=== PATIENT | male | born 1980 | race Caucasian/White ===

== ENCOUNTER 2016-12-02 16:23 | Emergency (ER) | payer OTHER ==
--- NOTE | ~2016-12-02 | CR72 ---
[facility] A Service of [facility] & [facility] RADIOLOGY TEXT RESULTS PATIENT: SHARLENE BETTENCOURT LOCATION: SED : 82 UNIT #: [id number] AGE: [address]: Chandler Bee MD SEX: M ORDER DR: [id number] [place] [id number] E MR#: [id number] Acc #: [id number] NAME: SHARLENE EBTTENCOURT : 1980 SEX: M STUDY DATE/TIME: 12/02/2016 16:59 UNIT: SED ROOM: STUDY DESCRIPTION: CR Chest Single View Portable Attending Physician: Chandler Bee M.D. Ordering Physician: Chandler Bee M.D. Primary Care Physician: Uche Boston M.D. MEDICAL IMAGING REPORT This report is preliminary unless electronic signature is present. EXAM Portable chest, 12/02/16. HISTORY Shortness of breath and chest pain for 2 days. Smoking history. Abdominal cramping for 2 days. FINDINGS A single AP portable view of the chest shows both lungs to be clear. The heart is normal in size. The mediastinal contour is normal. No significant bone abnormalities are seen. IMPRESSION Normal portable chest. Dictated by... Albert Guadarrama M.D. THIS IS AN ELECTRONICALLY VERIFIED REPORT Albert Guadarrama M.D. at 12/03/2016 2:13 PM AMY/sara TD: 12/02/2016 19:11 JOB #: [id number] MEDICAL IMAGING REPORT Page 1 of 1
--- NOTE | ~2016-12-02 | EKG ---
PATIENT: SHARLENE BETTENCOURT UNIT #: [id number] Ventricular Rate: 84 BPM Atrial Rate: 84 BPM P-R Interval: 200 ms QRS Duration: 70 ms Q-T Interval: 364 ms QTC Calculation(Bezet): 430 ms P [place]: 34 degrees Calculated R [place]: 50 degrees Calculated T [place]: 33 degrees Diagnosis Line: Normal sinus rhythm Diagnosis Line: Normal ECG Diagnosis Line: When compared with ECG of 02-DEC-2016 16:28, Diagnosis Line: (unconfirmed) Diagnosis Line: Vent. rate has decreased BY 60 BPM Diagnosis Line: ST no longer depressed in Anterior leads Diagnosis Line: Confirmed by RAGHU VIGIL MD ([id number]) on Diagnosis Line: 12/05/2016 3:23:19 PM INTERPRETING MD: YARITZA WEINSTEIN
--- NOTE | ~2016-12-02 | EKG ---
PATIENT: SHARLENE BETTENCOURT UNIT #: [id number] Ventricular Rate: 144 BPM Atrial Rate: 141 BPM QRS Duration: 70 ms Q-T Interval: 306 ms QTC Calculation(Bezet): 473 ms Calculated R [place]: 71 degrees Calculated T [place]: 59 degrees Diagnosis Line: Sinus tachycardia Diagnosis Line: Nonspecific ST abnormality Diagnosis Line: Abnormal ECG Diagnosis Line: When compared with ECG of 16-MAR-2016 12:14, Diagnosis Line: T wave inversion no longer evident in Inferior Diagnosis Line: leads Diagnosis Line: Confirmed by RAGHU VIGIL MD ([id number]) on Diagnosis Line: 12/05/2016 3:23:16 PM INTERPRETING MD: YARITZA WEINSTEIN
[~2016-12-02 16:23] MED LIST: ACETAMINOPHEN; ADVIL200 M1 PO; ALBUTEROL MININEB NEB; ALBUTEROL17 GM; ALBUTEROL17 GM INH; ALLERGY SHOTS; ALPRAZOLAM PO; AMOXICILLIN PO; AMOXICILLIN500 M1 PO; BACLOFEN10 MG; BENTYL20 M1 PO; BENZONATATE; BENZONATATE PO; CELEXA PO; CHANTIX PO; CIPRO PO; CLARITIN10 MG PO; CLARITIN5 MG/5 ML; DAYPRO600 M1 PO; DAYQUIL; DICYCLOMINE HCL20 MG PO; EC-NAPROSYN500 MG PO; IBUPROFEN PO; KCL PO; LORATADINE; MOBIC; MOTRIN600 MG PO; MUCINEX; NO MEDICATIONS; PEN-VEE K PO; PERCOCET5/325 PO; PHENERGAN DM1 ML PO; PHENERGAN PO; PREDNISONE; PREDNISONE PO; PRILOSEC; ROBITUSSIN ALL118 ML PO; RONDEC DROPS30 ML PO; SUDAFED PE COLD1 TA1; SUDAFED PLUS PO; SUDAFED PO; SUDAFED30 M1 PO; SUDAFED60 MG PO; TAMIFLU75 MG PO; TRAMADOL HCL50 M1; TRAMADOL HCL50 M1 PO; TYLENOL #3; VIBRAMYCIN100 M1 PO; VOLTAREN50 MG PO; VOLTAREN75 MG PO; ZANAFLEX4 M1 PO; ZITHROMAX PO; ZOFRAN ODT4 MG PO; ZOFRAN ODT4 MG/UDTAB PO; ZYRTEC PO; ZYRTEC-D T1 TAB.SR . PO; ZYRTEC10 M2
[2016-12-02 17:08] LABS: POC - CKMB <1.0 ng/mL (0.0-7.9); POC - TROPONIN <0.05 ng/mL (<=0.05)
[2016-12-02 17:11] LABS: BASOPHIL# 0.1 X10e3 (0-0.3); BASOPHIL% 0.9 % (0-2.5); EOSINOPHIL# 0.3 X10e3 (0-0.7); EOSINOPHIL% 2.1 % (0.0-7.0); HEMATOCRIT 45.6 % (38.0-50.0); HEMOGLOBIN 15.6 gm/dL (13.0-16.0); LYMPHOCYTE# 4.9 X10e3 (1.0-3.5); LYMPHOCYTE% 38.9 % (17.0-45.0); MEAN CELL VOLUME 90.2 FL (83-96); MEAN CORPUSCULAR HEMOGLOBIN 30.8 PG (28-34); MEAN CORPUSCULAR HGB CONC 34.2 g/dL (30-36); MEAN PLATELET VOLUME 9.5 FL (6.5-11.5); MONOCYTE# 1.5 X10e3 (0-1.0); MONOCYTE% 12.2 % (3.0-12.0); NEUTROPHIL# 5.8 X10e3 (1.5-7.1); NEUTROPHIL% 45.9 % (40-75); PLATELET COUNT 301 X10e3 (140-420); RED BLOOD COUNT 5.06 X10e (3.90-5.60); RED CELL DISTRIBUTION WIDTH 13.6 % (11.0-15.5); WHITE BLOOD COUNT 12.6 X10e3 (4.0-10.5)
[2016-12-02 17:14] LABS: DIFF IND NO
[2016-12-02 17:29] LABS: ALBUMIN SERUM 4.5 g/dL (3.5-5.0); BILIRUBIN, DIRECT 0.1 mg/dL (0.0-0.2); BILIRUBIN,INDIRECT 0.4 mg/dL (0.0-0.9); BILIRUBIN,TOTAL 0.5 mg/dL (0.2-2.0); BUN/CREATININE RATIO 8.88; CALCIUM SERUM 9.6 mg/dL (8.4-10.2); CREATININE SERUM 0.9 mg/dL (0.6-1.4); GLOM FILT RATE Estimated 110.3 mL/min (>60); POTASSIUM 3.1 mmol/L (3.5-5.1)
[2016-12-02 17:33] LABS: URINE SOURCE CLEAN CATCH
[2016-12-02 17:36] LABS: URINE APPEARANCE CLEAR; URINE BILIRUBIN NEG (NEG); URINE BLOOD NEG (NEG); URINE COLOR YELLOW; URINE GLUCOSE NEG (NORM); URINE KETONE NEG (NEG); URINE LEUKOCYTE ESTERASE NEG (NEG); URINE NITRATE NEG (NEG); URINE PH 7.5 (5-8); URINE PROTEIN NEG (NEG); URINE SPECIFIC GRAVITY <=1.005 (1.003-1.035); URINE UROBILINOGEN 0.2 MG/DL (NORM)
[2016-12-02 17:40] LABS: MICRO INDICATED? NO
[2016-12-02 17:46] LABS: AMPHETAMINE NEG (NEG); BARBITURATES NEG (NEG); BENZODIAZEPINES NEG (NEG); COCAINE NEG (NEG); MARIJUANA NEG (NEG); OPIATES NEG (NEG); TRICYCLIC ANTIDEPRESSANTS NEG (NEG); U METHADONE NEG (NEG)
== END 2016-12-02 18:42 | disposition home or self-care (01) ==
LOC: SED 16:23
PROVIDERS: Emergency Medicine
DX: R07.89 Other chest pain (principal); E87.6 Hypokalemia; R00.0 Tachycardia, unspecified; K21.9 Gastro-esophageal reflux disease without esophagitis; F41.9 Anxiety disorder, unspecified; F17.200 Nicotine dependence, unspecified, uncomplicated; Z88.1 Allergy status to other antibiotic agents
CPT/HCPCS: 36415; 71010; 80048; 80076; 80307; 81003; 82553; 84443; 84484; 85025; 93005; 96361; 96374; 96375; 99291; J0153

== ENCOUNTER 2016-12-06 13:18 | Emergency (ER) | payer OTHER ==
--- NOTE | ~2016-12-06 | EKG ---
PATIENT: SHARLENE BETTENCOURT UNIT #: [id number] Ventricular Rate: 113 BPM Atrial Rate: 113 BPM P-R Interval: 186 ms QRS Duration: 72 ms Q-T Interval: 322 ms QTC Calculation(Bezet): 441 ms P [place]: 66 degrees Calculated R [place]: 65 degrees Calculated T [place]: 38 degrees Diagnosis Line: Sinus tachycardia Diagnosis Line: Otherwise normal ECG Diagnosis Line: When compared with ECG of 06-DEC-2016 13:29, Diagnosis Line: No significant change was found Diagnosis Line: Confirmed by RAGHU VIGIL MD ([id number]) on Diagnosis Line: 12/07/2016 7:08:19 PM INTERPRETING MD: YARITZA WEINSTEIN
--- NOTE | ~2016-12-06 | CT16 ---
[facility] A Service of [facility] & [facility] RADIOLOGY TEXT RESULTS PATIENT: SHARLENE BETTENCOURT LOCATION: [facility] : 82 UNIT #: [id number] AGE: [address]: Marques Church MD SEX: M ORDER DR: [id number] [facility] [address] [place], [place] [address] [id number] E MR#: [id number] Acc #: [id number] NAME: SHARLENE BETTENCOURT : 1980 SEX: M STUDY DATE/TIME: 12/06/2016 16:27 UNIT: [facility] ROOM: STUDY DESCRIPTION: CT Angio Chest for PE Attending Physician: Clemente Church M.D. Referring Physician: Mason Fragoso M.D. Ordering Physician: Ed Ronnell Nicole M.D. Primary Care Physician: Uche Boston M.D. MEDICAL IMAGING REPORT This report is preliminary unless electronic signature is present EXAM CT angiography chest for PE. HISTORY Chest pain for 10 days. Radiates from the left side of chest to shoulder. TECHNIQUE CT pulmonary angiography performed with intravenous administration 80 mL Isovue-370. Three-dimensional reconstructions performed through pulmonary arteries. This CT exam was performed with one or more of the following radiation dose reduction techniques: automatic exposure control, adjustment of mA and/or kV according to patient size, and iterative reconstruction. COMPARISON 03/16/16 FINDINGS Thyroid unremarkable. No axillary, mediastinal or hilar adenopathy. Heart is normal in size. No pleural effusions. Liver appears slightly low in overall density. This may be a reflection of some degree of fatty infiltration. No suspicious focal hepatic parenchymal abnormality. Gallbladder, spleen, pancreas, adrenal glands, upper renal poles, esophagus, stomach, small bowel and colon unremarkable in their visualized extents. No upper abdominal adenopathy. Pulmonary parenchyma shows no acute pulmonary disease. There may be some mild underlying centrilobular emphysema. 3-4 mm noncalcified subpleural nodule posterior left upper lobe, image 48 unchanged from March 2016. Similar 3-4 mm noncalcified subpleural nodule lateral left lower lobe image 114 unchanged. No clearly suspicious nodule. Pulmonary arteries are well opacified. No PE. No aortic aneurysm or dissection. The visualized aortic branch vessels appear patent. No acute-appearing bony abnormality. [facility]. [facility] A Service of [facility] RADIOLOGY TEXT RESULTS PATIENT: SHARLENE BETTENCOURT LOCATION: [facility] : 82 UNIT #: [id number] AGE: [address]: Marques Church MD SEX: M ORDER DR: IMPRESSION 1. No PE. No evidence of aortic aneurysm or dissection. 2. Evidence of acute pulmonary disease. There is probably mild underlying central centrilobular emphysema. 3. 3-4 mm subpleural noncalcified pulmonary nodules in the lateral left upper and lower lobes unchanged from March 2016. Most likely benign. If the patient has risk factors for pulmonary malignancy inclusive of history of tobacco usage, 12-month CT followup would be recommended. In the absence of such risk factors, no additional imaging would be necessary. 4. There may be mild generalized fatty infiltration of liver. No focal hepatic parenchymal abnormality suggested. No acute abnormalities seen in the visualized upper abdomen. Dictated by... Harrison Daily M.D. THIS IS AN ELECTRONICALLY VERIFIED REPORT Harrison Daily M.D. at 12/07/2016 6:33 PM YOHANA/sara TD: 12/07/2016 00:31 JOB #: [id number] MEDICAL IMAGING REPORT Page 1 of 1 COPY
--- NOTE | ~2016-12-06 | EKG ---
PATIENT: SHARLENE BETTENCOURT UNIT #: [id number] Ventricular Rate: 118 BPM Atrial Rate: 118 BPM P-R Interval: 184 ms QRS Duration: 72 ms Q-T Interval: 310 ms QTC Calculation(Bezet): 434 ms P [place]: 55 degrees Calculated R [place]: 59 degrees Calculated T [place]: 23 degrees Diagnosis Line: Sinus tachycardia Diagnosis Line: Otherwise normal ECG Diagnosis Line: When compared with ECG of 02-DEC-2016 17:35, Diagnosis Line: No significant change was found Diagnosis Line: Confirmed by MONTSE SU MD ([id number]) on Diagnosis Line: 12/06/2016 2:05:50 PM INTERPRETING MD: SHARLENE WEINSTEIN
--- NOTE | ~2016-12-06 | CR72 ---
[facility] A Service of [facility] RADIOLOGY TEXT RESULTS PATIENT: SHARLENE BETTENCOURT LOCATION: [facility] : 82 UNIT #: [id number] AGE: [address]: Marques Church MD SEX: M ORDER DR: [id number] [facility] [address] [place], [place] [address] [id number] E MR#: [id number] Acc #: [id number] NAME: SHARLENE BETTENCOURT : 1980 SEX: M STUDY DATE/TIME: 12/06/2016 14:38 UNIT: [facility] ROOM: STUDY DESCRIPTION: CR Chest Single View Portable Attending Physician: Clemente Church M.D. Ordering Physician: Ed Doc Massimo Nicole Primary Care Physician: Uche Boston M.D. MEDICAL IMAGING REPORT This report is preliminary unless electronic signature is present EXAM AP portable chest, 12/06/2016. HISTORY 36-year-old male with chest pain, shortness breath and rapid heartbeat for 10 days. Additional history of asthma. Previous history of smoking. COMPARISON AP portable chest, 12/02/2016. FINDINGS No acute airspace disease is seen. The heart size is within normal limits. No pleural effusion or pneumothorax is identified. No acute osseous abnormality. IMPRESSION No acute cardiopulmonary findings. Dictated by... Juana Berrios M.D. THIS IS AN ELECTRONICALLY VERIFIED REPORT Juana Berrios M.D. at 12/07/2016 10:05 AM DL/sara TD: 12/06/2016 20:41 JOB #: [id number] MEDICAL IMAGING REPORT Page 1 of 1 COPY
[2016-12-06 14:38] LABS: BASOPHIL# 0.1 X10e3 (0-0.3); BASOPHIL% 0.8 % (0-2.5); DIFF IND NO; EOSINOPHIL# 0.2 X10e3 (0-0.7); EOSINOPHIL% 1.7 % (0.0-7.0); HEMATOCRIT 45.3 % (38.0-50.0); HEMOGLOBIN 15.3 gm/dL (13.0-16.0); LYMPHOCYTE# 3.4 X10e3 (1.0-3.5); LYMPHOCYTE% 32.5 % (17.0-45.0); MEAN CELL VOLUME 89.1 FL (83-96); MEAN CORPUSCULAR HEMOGLOBIN 30.1 PG (28-34); MEAN CORPUSCULAR HGB CONC 33.8 g/dL (30-36); MONOCYTE# 1.2 X10e3 (0-1.0); MONOCYTE% 11.1 % (3.0-12.0); NEUTROPHIL# 5.6 X10e3 (1.5-7.1); NEUTROPHIL% 53.9 % (40-75); PLATELET COUNT 275 X10e3 (140-420); RED BLOOD COUNT 5.09 X10e (3.90-5.60); RED CELL DISTRIBUTION WIDTH 13.6 % (11.0-15.5); WHITE BLOOD COUNT 10.4 X10e3 (4.0-10.5)
[2016-12-06 14:45] LABS: POC - CKMB <1.0 ng/mL (0.0-7.9); POC - TROPONIN <0.05 ng/mL (<=0.05)
[2016-12-06 14:47] LABS: INR 0.9; PARTIAL THROMBOPLASTIN TIME 28.3 SECONDS (23.5-31.3); PROTHROMBIN TIME (PATIENT) 9.6 SECONDS (9.6-11.5)
[2016-12-06 14:48] LABS: BILIRUBIN, DIRECT 0.1 mg/dL (0.0-0.2); BILIRUBIN,INDIRECT 0.3 mg/dL (0.0-0.9); BILIRUBIN,TOTAL 0.4 mg/dL (0.2-2.0); BUN/CREATININE RATIO 6.66; CALCIUM SERUM 9.9 mg/dL (8.4-10.2); CREATININE SERUM 0.9 mg/dL (0.6-1.4); GLOM FILT RATE Estimated 110.3 mL/min (>60); POTASSIUM 3.3 mmol/L (3.5-5.1); PROTEIN TOTAL SERUM 8.3 g/dL (6.0-8.3)
[2016-12-06 15:44] LABS: POC - CKMB <1.0 ng/mL (0.0-7.9); POC - TROPONIN <0.05 ng/mL (<=0.05)
== END 2016-12-06 18:41 | disposition home or self-care (01) ==
LOC: CED 13:18
PROVIDERS: Emergency Medicine
DX: R07.89 Other chest pain (principal); R00.0 Tachycardia, unspecified; J45.909 Unspecified asthma, uncomplicated; K58.9 Irritable bowel syndrome, unspecified; F17.210 Nicotine dependence, cigarettes, uncomplicated; Z88.8 Allergy status to other drugs, medicaments and biological substances
CPT/HCPCS: 36415; 71010; 71275; 80048; 80076; 82553; 84484; 85025; 85610; 85730; 93005; 96360; 99284; Q9967

== ENCOUNTER → 2017-01-12 | Outpatient (CLI) | payer OTHER ==
--- NOTE | ~2017-01-12 | ST ---
Unit #: [id number] #: [id number] Patient: SHARLENE BETTENCOURT [id number] [address] [address] [id number] O MR#: [id number] NAME: SHARLENE BETTENCOURT : 1980 SEX: M STUDY DATE/TIME: 01/17/2017 UNIT: CEKG ROOM: STUDY DESCRIPTION: STRESS ECG Attending Physician: Pavan Engel M.D. Referring Physician: Pavan Engel M.D. Primary Care Physician: Uche Boston M.D. CARDIOLOGY REPORT EXAM Stress ECG INDICATIONS Chest pain, tachycardia SUMMARY Patient experienced chest pain 4-5/10 all day. The patient exercised 4 minutes on a Keenan protocol. Heart rate increased from 123-160. Blood pressure increased 121/89 to 140/90. Heart rate was 89%. Rhythm was sinus. Rest and stress ECG showed no diagnostic ST shifts. Resting heart rate was actually closer to 75, despite the heart rate recorded above. The patient stopped due to leg pain, had chest pain 4-5/10 at the beginning no active disease during the test which did not change. IMPRESSION 1. Severe deconditioning. Normal heart rate and blood pressure responses. 2. Normal stress ECG despite chest pain. Dictated by... Massimo Tidwell/memo TD: 01/17/2017 19:33 JOB #: [id number] CARDIOLOGY REPORT Page 1 of 1 X Pavan Engel MD CARDIOLOGY REPORT
== END | disposition home or self-care (01) ==
LOC: CEKG 08:04
DX: R07.2 Precordial pain (principal); R94.39 Abnormal result of other cardiovascular function study
CPT/HCPCS: 93017

== ENCOUNTER 2017-01-27 21:29 | Emergency (ER) | payer OTHER ==
--- NOTE | ~2017-01-27 | US84 ---
[id number] [facility] [address] [place], [place] [address] [id number] E MR#: [id number] Acc #: [id number] NAME: SHARLENE BETTENCOURT : 1980 SEX: M STUDY DATE/TIME: 01/27/2017 23:48 UNIT: [facility] ROOM: STUDY DESCRIPTION: US LE Veins Complete Hayden Stdy Attending Physician: Harrison Judge P.A.-C. Ordering Physician: Benton Watson D.O. Primary Care Physician: Uche Boston M.D. MEDICAL IMAGING REPORT This report is preliminary unless electronic signature is present EXAM Bilateral leg vein Doppler, 01/27 at 23:48 INDICATION Bilateral lower extremity pain for 1 day. TECHNIQUE Venous ultrasound examination of both lower extremities was performed using grayscale, spectral Doppler and color flow Doppler imaging. FINDINGS The examination is negative. There is no evidence of deep venous thrombus from the groin to the lower calf bilaterally. Visualized greater saphenous veins are also patent. IMPRESSION Negative examination. No evidence of bilateral lower extremity deep venous thrombosis. Dictated by... Frankie Berman Jr., M.D. THIS IS AN ELECTRONICALLY VERIFIED REPORT Frankie Berman Jr., M.D. at 01/28/2017 9:21 PM ARACELY/chapin TD: 01/28/2017 13:26 JOB #: [id number] MEDICAL IMAGING REPORT Page 1 of 1 COPY
--- NOTE | ~2017-01-27 | CR181 ---
[facility] A Service of [facility] RADIOLOGY TEXT RESULTS PATIENT: SHARLENE BETTENCOURT LOCATION: [facility] : 82 UNIT #: [id number] AGE: [address]: Harrison Judge PAC SEX: M ORDER DR: [id number] [facility] [address] [place], [place] [address] [id number] E MR#: [id number] Acc #: [id number] NAME: SHARLENE BETTENCOURT : 1980 SEX: M STUDY DATE/TIME: 01/28/2017 03:16 UNIT: [facility] ROOM: STUDY DESCRIPTION: CR Lumbar Spine 2 or 3 Views Attending Physician: Harrison Judge P.A.-C. Ordering Physician: Benton Watson D.O. Primary Care Physician: Uche Boston M.D. MEDICAL IMAGING REPORT This report is preliminary unless electronic signature is present EXAM Lumbar spine 01/28/2017 at 0316 hours INDICATION Low back pain that started today. COMPARISON(S) 02/09/2015 FINDINGS AP and lateral projections of the lumbar segment show good mineralization of both anterior and posterior elements. They are all anatomically normal without indication of fracture, dislocation, or malignant change of a sclerotic or lytic type. There is no congenital defect noted. The sacroiliac joints are normal. IMPRESSION Normal lumbar spine. Dictated by... Frankie Berman Jr., M.D. THIS IS AN ELECTRONICALLY VERIFIED REPORT Frankie Berman Jr., M.D. at 01/28/2017 9:23 PM ARACELY/joan TD: 01/28/2017 15:22 JOB #: [id number] MEDICAL IMAGING REPORT [facility] A Service of [facility] RADIOLOGY TEXT RESULTS PATIENT: SHARLENE BETTENCOURT LOCATION: [facility] : 81 UNIT #: [id number] AGE: [address]: Harrison Judge PAC SEX: M ORDER DR: Page 1 of 1 COPY
[2017-01-27 23:24] LABS: POC - CKMB 1.7 ng/mL (0.0-7.9); POC - TROPONIN <0.05 ng/mL (<=0.05)
[2017-01-28 00:05] LABS: BASOPHIL# 0.1 X10e3 (0-0.3); BASOPHIL% 0.7 % (0-2.5); EOSINOPHIL# 0.2 X10e3 (0-0.7); EOSINOPHIL% 1.3 % (0.0-7.0); HEMATOCRIT 42.6 % (38.0-50.0); HEMOGLOBIN 14.4 gm/dL (13.0-16.0); LYMPHOCYTE# 3.5 X10e3 (1.0-3.5); LYMPHOCYTE% 25.9 % (17.0-45.0); MEAN CELL VOLUME 89.5 FL (83-96); MEAN CORPUSCULAR HEMOGLOBIN 30.2 PG (28-34); MEAN CORPUSCULAR HGB CONC 33.7 g/dL (30-36); MEAN PLATELET VOLUME 9.7 FL (6.5-11.5); MONOCYTE# 1.2 X10e3 (0-1.0); MONOCYTE% 8.9 % (3.0-12.0); NEUTROPHIL# 8.6 X10e3 (1.5-7.1); NEUTROPHIL% 63.2 % (40-75); PLATELET COUNT 254 X10e3 (140-420); RED BLOOD COUNT 4.76 X10e (3.90-5.60); RED CELL DISTRIBUTION WIDTH 13.5 % (11.0-15.5); WHITE BLOOD COUNT 13.6 X10e3 (4.0-10.5)
[2017-01-28 00:06] LABS: DIFF IND NO
[2017-01-28 00:24] LABS: ALBUMIN SERUM 4.4 g/dL (3.5-5.0); BILIRUBIN, DIRECT 0.1 mg/dL (0.0-0.2); BILIRUBIN,INDIRECT 0.8 mg/dL (0.0-0.9); BILIRUBIN,TOTAL 0.9 mg/dL (0.2-2.0); CALCIUM SERUM 9.2 mg/dL (8.4-10.2); CREATININE SERUM 0.8 mg/dL (0.6-1.4); GLOM FILT RATE Estimated 115.8 mL/min (>60); MAGNESIUM 1.9 mg/dL (1.6-3.0); POTASSIUM 3.2 mmol/L (3.5-5.1); PROTEIN TOTAL SERUM 7.4 g/dL (6.0-8.3)
[2017-01-28 03:46] LABS: URINE SOURCE CLEAN CATCH
[2017-01-28 03:49] LABS: URINE APPEARANCE CLEAR; URINE BILIRUBIN NEG (NEG); URINE BLOOD NEG (NEG); URINE COLOR YELLOW; URINE GLUCOSE NEG (NEG); URINE KETONE NEG (NEG); URINE LEUKOCYTE ESTERASE NEG (NEG); URINE NITRATE NEG (NEG); URINE PH 7.5 (5-8); URINE PROTEIN NEG (NEG); URINE SPECIFIC GRAVITY 1.008 (1.003-1.035)
[2017-01-28 03:53] LABS: CULTURE INDICATED? NO
== END 2017-01-28 04:38 | disposition home or self-care (01) ==
LOC: CED 21:29
PROVIDERS: Emergency Medicine
DX: M79.1 Myalgia (principal); M25.50 Pain in unspecified joint; K21.9 Gastro-esophageal reflux disease without esophagitis; F41.9 Anxiety disorder, unspecified; F17.200 Nicotine dependence, unspecified, uncomplicated; Z88.8 Allergy status to other drugs, medicaments and biological substances
CPT/HCPCS: 36415; 72100; 80048; 80076; 81003; 82550; 82553; 83735; 84484; 85025; 85379; 93970; 96361; 96374; 99284; J1885

== ENCOUNTER 2017-02-06 17:13 | Emergency (ER) | payer OTHER ==
[~2017-02-06] VITALS: Ht 172.7 cm; Wt 74.8 kg
--- NOTE | ~2017-02-06 | EKG ---
PATIENT: SHARLENE BETTENCOURT UNIT #: [id number] Ventricular Rate: 120 BPM Atrial Rate: 120 BPM P-R Interval: 180 ms QRS Duration: 70 ms Q-T Interval: 314 ms QTC Calculation(Bezet): 443 ms P [place]: 57 degrees Calculated R [place]: 70 degrees Calculated T [place]: 48 degrees Diagnosis Line: Sinus tachycardia Diagnosis Line: Otherwise normal ECG Diagnosis Line: When compared with ECG of 27-JAN-2017 23:18, Diagnosis Line: No significant change was found Diagnosis Line: Confirmed by RAGHU VIGIL MD ([id number]) on Diagnosis Line: 02/07/2017 2:15:49 PM INTERPRETING MD: YARITZA WEINSTEIN
--- NOTE | ~2017-02-06 | CT71 ---
[facility] A Service of [facility] RADIOLOGY TEXT RESULTS PATIENT: SHARLENE BETTENCOURT LOCATION: [facility] : 82 UNIT #: [id number] AGE: [address]: Yun Orellana MD SEX: M ORDER DR: [id number] [facility] [address] [place], [place] [address] [id number] P MR#: [id number] Acc #: [id number] NAME: SHARLENE BETTENCOURT : 1980 SEX: M STUDY DATE/TIME: 02/06/2017 20:33 UNIT: [facility] ROOM: STUDY DESCRIPTION: CT Head Wo Contrast Attending Physician: Yun Orellana M.D. Ordering Physician: Yun Orellana M.D. Primary Care Physician: Uche Boston M.D. MEDICAL IMAGING REPORT This report is preliminary unless electronic signature is present EXAM Head CT without contrast, 02/17/2017 HISTORY Syncope and elevated heart rate today, headache and dizziness today. TECHNIQUE This CT exam was performed with one or more of the following radiation dose reduction techniques: automatic exposure control, adjustment of mA and/or kV according to patient size, and iterative reconstruction. FINDINGS Axial noncontrast images were obtained from the skull base to the vertex. Ventricular size and configuration are normal. There is no evidence of acute infarct or hemorrhage. There are no extra-axial fluid collections. No mass lesion or mass effect is seen. There are no skull fractures. IMPRESSION Normal noncontrast head CT. Dictated by... Albert Guadarrama M.D. THIS IS AN ELECTRONICALLY VERIFIED REPORT Albert Guadarrama M.D. at 02/07/2017 7:37 AM AMY/eddi TD: 02/06/2017 21:19 JOB #: [id number] [facility] A Service of [facility] RADIOLOGY TEXT RESULTS PATIENT: SHARLENE BETTENCOURT LOCATION: [facility] : 82 UNIT #: [id number] AGE: [address]: Yun Orellana MD SEX: M ORDER DR: MEDICAL IMAGING REPORT Page 1 of 1 COPY
[2017-02-06 20:15] LABS: BASOPHIL# 0.1 X10e3 (0-0.3); BASOPHIL% 0.9 % (0-2.5); EOSINOPHIL# 0.1 X10e3 (0-0.7); EOSINOPHIL% 0.9 % (0.0-7.0); HEMATOCRIT 47.4 % (38.0-50.0); HEMOGLOBIN 16.1 gm/dL (13.0-16.0); LYMPHOCYTE# 2.9 X10e3 (1.0-3.5); LYMPHOCYTE% 21.6 % (17.0-45.0); MEAN CORPUSCULAR HEMOGLOBIN 30.6 PG (28-34); MEAN PLATELET VOLUME 8.9 FL (6.5-11.5); MONOCYTE# 0.9 X10e3 (0-1.0); NEUTROPHIL# 9.5 X10e3 (1.5-7.1); NEUTROPHIL% 69.6 % (40-75); PLATELET COUNT 299 X10e3 (140-420); RED BLOOD COUNT 5.27 X10e (3.90-5.60); RED CELL DISTRIBUTION WIDTH 13.2 % (11.0-15.5); WHITE BLOOD COUNT 13.6 X10e3 (4.0-10.5)
[2017-02-06 20:17] LABS: DIFF IND NO
[2017-02-06 20:25] LABS: URINE SOURCE CLEAN CATCH
[2017-02-06 20:31] LABS: URINE APPEARANCE CLEAR; URINE BLOOD NEG (NEG); URINE COLOR DK YELLOW; URINE GLUCOSE NEG (NEG); URINE KETONE TRACE (NEG); URINE LEUKOCYTE ESTERASE TRACE (NEG); URINE NITRATE NEG (NEG); URINE PROTEIN TRACE (NEG); URINE SPECIFIC GRAVITY 1.026 (1.003-1.035)
[2017-02-06 20:32] LABS: POC - CKMB <1.0 ng/mL (0.0-7.9); POC - TROPONIN <0.05 ng/mL (<=0.05)
[2017-02-06 20:34] LABS: URINE BACTERIA AUWI NEG (NEGATIVE); URINE SQUAMOUS EPITHELIAL CELL NONE SEEN /[HPF]; UWBCS1 AUWI 0-2 (0-5)
[2017-02-06 20:36] LABS: CULTURE INDICATED? NO; URINE BILIRUBIN NEG (NEG)
[2017-02-06 20:40] LABS: AMPHETAMINE NEG (NEG); BARBITURATES NEG (NEG); BENZODIAZEPINES NEG (NEG); COCAINE NEG (NEG); MARIJUANA NEG (NEG); OPIATES NEG (NEG); TRICYCLIC ANTIDEPRESSANTS NEG (NEG); U METHADONE NEG (NEG)
[2017-02-06 20:47] LABS: ALBUMIN SERUM 4.9 g/dL (3.5-5.0); BILIRUBIN, DIRECT 0.1 mg/dL (0.0-0.2); BILIRUBIN,INDIRECT 0.4 mg/dL (0.0-0.9); BILIRUBIN,TOTAL 0.5 mg/dL (0.2-2.0); BUN/CREATININE RATIO 8.75; CALCIUM SERUM 9.9 mg/dL (8.4-10.2); CREATININE SERUM 0.8 mg/dL (0.6-1.4); GLOM FILT RATE Estimated 115.8 mL/min (>60); POTASSIUM 3.7 mmol/L (3.5-5.1); PROTEIN TOTAL SERUM 8.1 g/dL (6.0-8.3)
== END 2017-02-06 22:45 | disposition home or self-care (01) ==
LOC: CED 17:13
PROVIDERS: Student in an Organized Health Care Education/Training Program
DX: R55 Syncope and collapse (principal); F41.9 Anxiety disorder, unspecified; F17.200 Nicotine dependence, unspecified, uncomplicated; Z88.1 Allergy status to other antibiotic agents; Z88.8 Allergy status to other drugs, medicaments and biological substances
CPT/HCPCS: 36415; 70450; 80048; 80076; 80307; 81003; 82553; 83735; 84484; 85025; 93005; 96361; 96374; 99285; J2060